=== PATIENT | male | born 1975 | race Caucasian/White ===

== ENCOUNTER 2018-10-03 09:49 | Emergency (ER) | payer OTHER ==
[2018-10-03] MEDS ORDERED: HYDROmorphone 1 MG/ML CARPUJECT IVP STA (12:10)
[2018-10-03] MEDS ORDERED: ONDANSETRON 4 MG/2 ML VIAL ONE (12:15)
[2018-10-03 12:36] LABS: BASOPHILS % (AUTO) 0.2 %; HGB - HEMOGLOBIN 14.5 g/dL (14.0-18.0); LYMPHOCYTES # (AUTO) 0.6 10^3/uL (1.5-3.5); LYMPHOCYTES % (AUTO) 5.5 %; MEAN CORPUSCULAR HEMOGLOBIN 29.8 pg (27.0-31.0); MEAN CORPUSCULAR VOLUME 82.7 fL (80.0-94.0); MEAN PLATELET VOLUME 7.5 fL (7.4-11.4); MONOCYTES # (AUTO) 0.5 10^3/uL (0.0-1.0); MONOCYTES % (AUTO) 3.9 %; NEUTROPHILS # (AUTO) 10.6 10^3/uL (1.5-6.6); NEUTROPHILS % (AUTO) 90.4 %; PLT - PLATELET COUNT 250 10^3/uL (130-450); RED BLOOD COUNT 4.85 10^6/uL (4.70-6.10); RED CELL DISTRIBUTION WIDTH 13.6 % (12.0-15.0); WHITE BLOOD COUNT 11.7 x10^3/uL (4.8-10.8)
[2018-10-03 12:45] LABS: ALBUMIN 4.7 g/dL (3.2-5.5); ALBUMIN/GLOBULIN RATIO 1.6 (1.0-2.2); BILIRUBIN,TOTAL 1.8 mg/dL (0.2-1.0); CREATININE 1.1 mg/dL (0.6-1.2); TOTAL PROTEIN 7.6 g/dL (6.7-8.2)
[2018-10-03] MEDS ORDERED: KETOROLAC 30 MG/ML VIAL IVP STA (12:59)
[2018-10-03] MEDS ORDERED: IOVERSOL 320 100 ML VIAL IVP ONE ×2 (13:05→13:47)
[2018-10-03] MEDS ORDERED: SODIUM CHLORIDE 0.9% 1,000 ML IV ONE (13:12)
--- NOTE | 2018-10-03 13:12 | ED Physician Documentation ---
PD HPI ABD PAIN - Stated complaint Stated Complaint: RIGHT SIDE PX - Chief complaint Chief Complaint: Abd Pain - History obtained from History obtained from: Patient, Family - History of Present Illness Timing - onset: Today Timing - duration: Hours (2) Timing - details: Abrupt onset Pain level max: 10 Pain level now: 10 Quality: Aching, Pain Location: Other (R flank) Radiation: Other (R flank to R groin) Improved by: Other (nothing) Worsened by: Other (nothing) Associated symptoms: Vomiting (x1 from pain). No: Fever, Nausea, Hematemesis, Diarrhea, Constipation, Melena, Hematochezia, Dysuria, Hematuria, Near syncope / syncope Similar symptoms before: Has not had sx before Recently seen: Not recently seen - Additional information Additional information: 43-year-old male with a history of fistulizing Crohn's. Not currently on any medications. Review of Systems Ten Systems: 10 systems reviewed and negative Constitutional: denies: Fever, Chills Nose: denies: Rhinorrhea / runny nose, Congestion Throat: denies: Sore throat Cardiac: denies: Chest pain / pressure Respiratory: denies: Cough GI: denies: Vomiting, Diarrhea Skin: denies: Rash Musculoskeletal: denies: Neck pain, Back pain Neurologic: denies: Headache PD PAST MEDICAL HISTORY - Past Medical History Past Medical History: Yes GI: Crohn's disease - Past Surgical History Past Surgical History: Yes General: Bowel surgery - Present Medications Home Medications: Ambulatory Orders Medication Instructions Recorded Confirmed Hydrocodone/Acetaminophen 1 - 2 each PO Q6H PRN #14 tablet 10/03/18 [Hydrocodon-Acetaminophen 5-325] Ibuprofen [Motrin] 800 mg PO Q8H PRN #30 tablet 10/03/18 Ondansetron Odt [Zofran] 4 mg TL Q6H PRN #10 tablet 10/03/18 - Allergies Allergies/Adverse Reactions: Allergies Allergy/AdvReac Type Severity Reaction Status Date / Time No Known Drug Allergies Allergy Verified 10/03/18 12:11 - Living Situation Living Situation: reports: With family Living Arrangement: reports: At home - Social History Does the pt have substance abuse?: No PD ED PE NORMAL - Vitals Vital signs reviewed: Yes - General General: Alert and oriented X 3, Other (appears in pain) - HEENT HEENT: Moist mucous membranes - Neck Neck: Supple, no meningeal sign - Cardiac Cardiac: RRR - Respiratory Respiratory: No respiratory distress, Clear bilaterally - Abdomen Abdomen: Soft, Non tender, Non distended - Back Back: No CVA TTP, No spinal TTP - Derm Derm: Warm and dry - Extremities Extremities: No edema - Neuro Neuro: Alert and oriented X 3 Results - Vitals Vitals: Vital Signs - 24 hr 10/03/18 10/03/18 10:04 14:45 Temperature 36.8 C 37.1 C Heart Rate 65 88 Respiratory 18 15 Rate Blood Pressure 143/100 H 112/66 O2 Saturation 100 99 Oxygen O2 Source Room air - Labs Labs: Laboratory Tests 10/03/18 10/03/18 10/03/18 12:07 12:07 14:43 WBC 11.7 H RBC 4.85 Hgb 14.5 Hct 40.1 L MCV 82.7 MCH 29.8 MCHC 36.0 RDW 13.6 Plt Count 250 MPV 7.5 Neut # (Auto) 10.6 H Lymph # (Auto) 0.6 L Hunt # (Auto) 0.5 Eos # (Auto) 0.0 Baso # (Auto) 0.0 Absolute Nucleated RBC 0.01 Nucleated RBC % 0.1 Sodium 135 Potassium 3.2 L Chloride 103 Carbon Dioxide 24 Anion Gap 8.0 BUN 16 Creatinine 1.1 Estimated GFR (MDRD) 73 L Glucose 120 H Calcium 9.0 Total Bilirubin 1.8 H AST 20 ALT 18 Alkaline Phosphatase 53 Total Protein 7.6 Albumin 4.7 Globulin 2.9 Albumin/Globulin Ratio 1.6 Lipase 18 L Urine Color YELLOW Urine Clarity HAZY Urine pH 6.0 Ur Specific Peel 1.010 Urine Protein NEGATIVE Urine Glucose (UA) NEGATIVE Urine Ketones NEGATIVE Urine Occult Blood LARGE H Urine Nitrite NEGATIVE Urine Bilirubin NEGATIVE Urine Urobilinogen 0.2 (NORMAL) Ur Leukocyte Esterase NEGATIVE Urine RBC 11-25 H Urine WBC 0-3 Ur Squamous Epith Cells NONE SEEN Urine Bacteria None Seen Ur Microscopic Review INDICATED Urine Culture Comments NOT INDICATED - Rads (name of study) CT abd/pelvis Radiology: Prelim report reviewed, EMP read contemporaneously, See rad report (. Mild right hydroureteronephrosis with perinephric and periureteric fat stranding secondary to an obstructing right UVJ stone measuring 3.2 mm in diameter. 2. Cholelithiasis with no CT evidence of acute cholecystitis. 3. Postsurgical changes involving the right hemicolon. 4. Fluid attenuation lesion measuring 4.7 x 4 cm in diameter in the upper right hemiscrotum, incompletely imaged. Sonographic evaluation on a nonemergent basis is recommended. 5. The remainder of the CT of the abdomen and pelvis with IV contrast is unremarkable. ) PD MEDICAL DECISION MAKING - ED course Complexity details: reviewed results, re-evaluated patient, considered differential, d/w patient, d/w family ED course: 43-year-old male with right-sided ureteral stone. Pain well controlled in the emergency department. No evidence of concomitant UTI. No evidence of pyelonephritis, fever, sepsis. The fluid attenuating lesion in the hemiscrotum has been previously evaluated per the patient and he will follow up with urology. Patient and family counseled regarding signs and symptoms for which I believe and urgent re-evaluation would be necessary. Patient with good understanding of and agreement to plan and is comfortable going home at this time This document was made in part using voice recognition software. While efforts are made to proofread this document, sound alike and grammatical errors may occur. Departure - Departure Disposition: 01 Home, Self Care Clinical Impression: Ureteral stone Condition: Good Instructions: ED Stone Renal W Colic Follow-Up: Paulino Mcduffie MD [Primary Care Provider] - As Needed Prescriptions: Hydrocodone/Acetaminophen [Hydrocodon-Acetaminophen 5-325] 1 - 2 each PO Q6H PRN #14 tablet PRN Reason: pain Ibuprofen [Motrin] 800 mg PO Q8H PRN #30 tablet PRN Reason: PAIN &/OR FEVER Ondansetron Odt [Zofran] 4 mg TL Q6H PRN #10 tablet PRN Reason: Nausea / Vomiting Comments: You have a right sided kidney stone. This should pass and is 3mm in size. Return if you worsen. Do not drink alcohol or drive while on narcotic pain medicine. Note that many narcotic pain relievers also contain tylenol/acetaminophen. Please ensure that your total dose of acetaminophen from all sources does not exceed 3 grams (3000mg) per day. You may constipated on this medication, take a stool softener such as "Colace" twice a day while you are on it. Also recommend a [id number] laxative such as senna or MiraLAX any day that you do not have a bowel movement. If you received narcotic pain medication in the emergency department, do not drive or operate machinery for the next 24 hours. Discharge Date/Time: 10/03/18 15:30
--- NOTE | 2018-10-03 14:03 | CT Report ---
Reason: R flank pain, sudden onset Procedure Date: 10/03/2018 Accession Number: [id number] / [id number] Procedure: CT - Abdomen/Pelvis W/ CPT Code: FULL RESULT: EXAM: CT ABDOMEN AND PELVIS EXAM DATE: 10/03/2018 01:46 PM. CLINICAL HISTORY: Sudden onset right flank pain, associated with nausea and vomiting. COMPARISONS: None. TECHNIQUE: Routine helical CT imaging was performed through the abdomen and pelvis. IV contrast: 90 ML OPTIRAY 320. Enteric contrast: No. Reconstructions: Coronal and sagittal. In accordance with CT protocol optimization, one or more of the following dose reduction techniques were utilized for this exam: automated exposure control, adjustment of mA and/or KV based on patient size, or use of iterative reconstructive technique. FINDINGS: Lung Bases: Unremarkable. Liver: Normal. No masses. Gallbladder/Bile Ducts: Cholelithiasis. No gallbladder wall thickening or pericholecystic fluid. No intrahepatic or extra hepatic biliary dilation. Spleen: Normal. Pancreas: Normal. Adrenal Glands: Normal. Kidneys: The left kidney is normal. There is a delayed right nephrogram. There is right perinephric fat stranding and periureteric fat stranding with mild right hydroureteronephrosis secondary to an obstructing right UVJ stone measuring 3.2 mm in diameter. Peritoneal Cavity/Bowel: Postsurgical changes involving the right hemicolon. No free fluid, free air or adenopathy. No masses or other acute inflammatory process. The appendix is absent. Pelvic Organs: The bladder is decompressed, but is otherwise within normal limits. Prostate gland and seminal vesicles are unremarkable. Within the upper aspect of the right hemiscrotum is a fluid attenuation area measuring 4.7 x 4 cm in diameter, either an epididymal head cyst or hydrocele of the spermatic cord. Vasculature: No aneurysms or other significant abnormality. Bones: No significant abnormality. Other: Postsurgical changes in the anterior abdominal wall soft tissues. Small fat-containing umbilical hernia. IMPRESSION: 1. Mild right hydroureteronephrosis with perinephric and periureteric fat stranding secondary to an obstructing right UVJ stone measuring 3.2 mm in diameter. 2. Cholelithiasis with no CT evidence of acute cholecystitis. 3. Postsurgical changes involving the right hemicolon. 4. Fluid attenuation lesion measuring 4.7 x 4 cm in diameter in the upper right hemiscrotum, incompletely imaged. Sonographic evaluation on a nonemergent basis is recommended. 5. The remainder of the CT of the abdomen and pelvis with IV contrast is unremarkable. [facility]
[2018-10-03 14:46] VITALS: BP 112/66
[2018-10-03 14:56] LABS: BILIRUBIN,URINE NEGATIVE (NEGATIVE); GLUCOSE, URINE (UA) NEGATIVE (NEGATIVE); KETONES,URINE (UA) NEGATIVE (NEGATIVE); LEUKOCYTE ESTERASE, URINE NEGATIVE (NEGATIVE); NITRITE,URINE NEGATIVE (NEGATIVE); OCCULT BLOOD,URINE LARGE (NEGATIVE); PROTEIN,URINE NEGATIVE (NEGATIVE); UROBILINOGEN,URINE 0.2 (NORMAL) E.U./dL (NORMAL)
[2018-10-03 14:59] LABS: CLARITY,URINE HAZY (CLEAR)
[2018-10-03 15:10] LABS: SQUAMOUS EPITHELIAL CELL,UR NONE SEEN (<= Few)
[2018-10-03 15:11] LABS: BACTERIA,URINE None Seen /HPF (None Seen)
== END 2018-10-03 15:30 | disposition home or self-care (01) ==
LOC: ED 09:49
DX: N13.2 Hydronephrosis with renal and ureteral calculous obstruction (principal); K80.20 Calculus of gallbladder without cholecystitis without obstruction; N50.89 Other specified disorders of the male genital organs; R11.0 Nausea; K50.90 Crohn's disease, unspecified, without complications
CPT/HCPCS: 36415; 74177; 80053; 81001; 83690; 85025; 96361; 96374; 96375; 99283; 99284; J1170; Q9967; 80048; 81003; 87086